=== PATIENT | female | born 1955 | race Caucasian/White ===

== ENCOUNTER 2023-02-11 14:27 | Emergency (ER) | payer MEDICARE, SELFPAY ==
[2023-02-11 14:48] VITALS: BP 138/72; PULSE 90; RESP 20; TEMP 36.1; O2SAT 96
--- NOTE | 2023-02-11 14:55 | ED.URI ---
HPI - URI/Sore Throat General Chief Complaint: Upper Respiratory Infection Stated Complaint: congestion,cough Time Seen by Provider: 02/11/23 14:55 Source: patient, RN notes reviewed and old records reviewed Mode of arrival: ambulatory Limitations: no limitations History of Present Illness HPI Narrative: 67 year old female who presents to express care with complaints of symptoms starting Saturday of nasal congestion and drainage which has progressed to deep cough with some production of yellowish phlegm. Patient reports that she has noted some wheezing at times. Patient reports that she has coughed so much and hard that she has thrown up. Patient reports that she moved to [facility] about a year ago and her PCP is in [facility] still. Patient reports that she did a home COVID test on which was negative has had COVID vaccinations. MD elicited complaint: cough, rhinorrhea, nasal congestion and other Pertinent past history: asthma Onset (ago): day(s) (5) Description of mucous: yellow Able to tolerate fluids by mouth: Yes Treatments prior to arrival: other (inhalers ) Related Data Home Medications Medication Instructions Recorded Confirmed albuterol sulfate 90 mcg/actuation 1 puff inhalation PRN PRN 02/11/23 02/11/23 aerosol inhaler Shortness Of Breath Or Wheezing amlodipine 5 mg-benazepril 20 mg 1 cap PO DAILY 02/11/23 02/11/23 capsule furosemide 40 mg tablet 40 mg PO DAILY 02/11/23 02/11/23 gabapentin 100 mg capsule 200 mg PO HS 02/11/23 02/11/23 metoprolol succinate 50 mg 50 mg PO HS 02/11/23 02/11/23 tablet,extended release 24 hr omeprazole 20 mg capsule,delayed 20 mg PO DAILY 02/11/23 02/11/23 release spironolactone 25 mg tablet 25 mg PO DAILY 02/11/23 02/11/23 tramadol 50 mg tablet 50 mg PO PRN PRN Pain 02/11/23 02/11/23 umeclidinium 62.5 mcg-vilanterol 1 inh inhalation DAILY 02/11/23 02/11/23 25 mcg/actuation powdr for inhalation (Anoro Ellipta) Allergies Allergy/AdvReac Type Severity Reaction Status Date / Time No Known Allergies Allergy Verified 02/11/23 14:37 Review of Systems Review of Systems: CONSTITUTIONAL: Denies malaise, chills, sweats, or fever. EYES: Denies visual changes, redness, or discharge. ENT: Reports rhinorrhea, congestion, sinus pain, no otalgia and some scratchy sore throat. CARDIOVASCULAR: Denies chest pain, palpitations, or edema. RESPIRATORY: Reports cough.? Denies dyspnea. GASTROINTESTINAL: Denies abdominal pain, nausea, one episode of vomiting with cough, diarrhea SKIN: Denies rash or itching. MUSCULOSKELETAL: Denies myalgia. NEUROLOGIC: Denies headache. All systems reviewed & are unremarkable except as noted in HPI and below PMFSH Past Medical History Medical History (Updated 02/12/23 @ 08:48 by Yue Phipps NP) Asthma Bronchitis GERD (gastroesophageal reflux disease) History of esophageal spasm Hyperlipidemia Hypertension Pneumonia Skin cancer Surgical History Surgical History (Updated 02/12/23 @ 08:49 by Yue Phipps NP) H/O hemorrhoidectomy H/O: hysterectomy History of cholecystectomy Social History Social History (Updated 02/12/23 @ 08:50 by Yue Phipps NP) Smoking status: Never smoker Alcohol intake: unknown Substance use type: does not use Gender identity (if verbalized by the patient): Female Comments At time of signature, agree with nursing past medical, surgical, social and family history. There is no relevant family history pertinent to the presenting complaint Exam Narrative: GENERAL: Well-appearing, well-nourished, and in no acute distress. HEAD: Normocephalic EYES: PERRLA, conjunctivae clear ENT: Nares clear, turbinates edematous and erythematous, yellow discharge. Mucous membranes moist. TM pearly campuzano with dull light reflex bilaterally; no tragal tenderness. Oropharynx erythematous without lesions. Tonsils not enlarged and without exudate, no drooling, some hoarseness,
== END 2023-02-11 15:19 | disposition home or self-care (01) ==
PROVIDERS: Emergency Provider Registered Nurse
DX: J40 Bronchitis, not specified as acute or chronic (principal); K21.9 Gastro-esophageal reflux disease without esophagitis; E78.5 Hyperlipidemia, unspecified; I10 Essential (primary) hypertension; J45.909 Unspecified asthma, uncomplicated; Z85.828 Personal history of other malignant neoplasm of skin
CPT/HCPCS: 99203; G0463

== ENCOUNTER 2023-05-21 09:20 | Emergency (ER) | payer MEDICARE, SELFPAY ==
--- NOTE | 2023-05-21 09:22 | ED.URI ---
HPI - URI/Sore Throat General Chief Complaint: Upper Respiratory Infection Stated Complaint: Chest Pain and Congestion Time Seen by Provider: 05/21/23 09:29 Source: patient, RN notes reviewed and old records reviewed Mode of arrival: ambulatory Limitations: no limitations History of Present Illness HPI Narrative: 68-year-old female presents to the [facility] with complaints of chest discomfort, congestion and shortness of breath that was sudden onset yesterday. Reports a sore throat. States that she feels like she can not get a deep breath. Patient states for the last 2 weeks she has had a runny nose? cold symptoms. ? Denies any fevers. States that she had tried her breathing treatment. States that she was having trouble breathing last night and was unable sleep. Onset (ago): day(s) (1) Treatments prior to arrival: other Related Data Home Medications Medication Instructions Recorded Confirmed albuterol sulfate 90 mcg/actuation 1 puff inhalation PRN PRN 02/11/23 05/21/23 aerosol inhaler Shortness Of Breath Or Wheezing amlodipine 5 mg-benazepril 20 mg 1 cap PO DAILY 02/11/23 05/21/23 capsule furosemide 40 mg tablet 40 mg PO DAILY 02/11/23 05/21/23 gabapentin 100 mg capsule 200 mg PO HS 02/11/23 05/21/23 metoprolol succinate 50 mg 50 mg PO HS 02/11/23 05/21/23 tablet,extended release 24 hr omeprazole 20 mg capsule,delayed 20 mg PO DAILY 02/11/23 05/21/23 release spironolactone 25 mg tablet 25 mg PO DAILY 02/11/23 05/21/23 tramadol 50 mg tablet 50 mg PO PRN PRN Pain 02/11/23 05/21/23 umeclidinium 62.5 mcg-vilanterol 1 inh inhalation DAILY 02/11/23 05/21/23 25 mcg/actuation powdr for inhalation (Anoro Ellipta) Allergies Allergy/AdvReac Type Severity Reaction Status Date / Time No Known Allergies Allergy Verified 05/21/23 09:43 Review of Systems Review of Systems: All systems reviewed & are unremarkable except as noted in HPI and below Constitutional: Constitutional: Reports no additional constitutional complaints Eyes: Eyes: Reports no additional eye complaints ENT: Reports system reviewed and no additional complaints, except as documented Cardiovascular: Cardiovascular: Reports as per HPI, Reports chest pain, Reports leg edema and Reports dyspnea Respiratory: Respiratory: Reports as per HPI, Reports chest congestion, Reports cough and Reports dyspnea Gastrointestinal: Gastrointestinal: Reports no additional gastrointestinal complaints, Denies abdominal pain, Denies nausea and Denies vomiting Musculoskeletal: Musculoskeletal: Reports no additional musculoskeletal complaints Integumentary/Breasts: Skin/Breast: Reports system reviewed and no additional complaints, except as docu Neurologic: Reports system reviewed and no additional complaints, except as documented Psychiatric: Psychiatric: Reports no additional psychiatric complaints Allergic/Immunologic: Allergic/Immunologic: Reports no additional allergic/immunologic complaints PMFSH Past Medical History Medical History Asthma Bronchitis GERD (gastroesophageal reflux disease) History of esophageal spasm Hyperlipidemia Hypertension Pneumonia Skin cancer Surgical History Surgical History H/O hemorrhoidectomy H/O: hysterectomy History of cholecystectomy Social History Social History Smoking status: Never smoker Alcohol intake: unknown Substance use type: does not use Gender identity (if verbalized by the patient): Female Comments At the time of my signature, I reviewed and agree with the nursing past medical, surgical, social, and family history. There is no relevant family history pertinent to the patient complaint. Exam Const: General: cooperative, healthy appearing, no acute distress, well developed, alert, uncomfortable and well nourished Nutritional Appear
[2023-05-21 09:39] VITALS: BP 136/75; PULSE 73; RESP 18; TEMP 36.6; O2SAT 89
--- NOTE | 2023-05-21 09:53 | ECG_ITS ---
Rate HI QRSd QT QTc P QRS T Severity 88 138 102 370 450 266 16 17 Abnormal ECG SINUS OR ECTOPIC ATRIAL RHYTHM BORDERLINE R WAVE PROGRESSION, ANTERIOR LEADS BORDERLINE T WAVE ABNORMALITY- ANTERIORL NIRMAL BASELINE ARTIFACT- II, III, AVF BORDERLINE ECG NO PREVIOUS ECG AVAILABLE FOR COMPARISON Electronically Signed On 05-21-2023 11:25:16 [employer] by Chuckie LEMUS
== END 2023-05-21 09:55 | disposition short-term general hospital (02) ==
PROVIDERS: Emergency Provider Nurse Practitioner
DX: R06.02 Shortness of breath (principal); R07.9 Chest pain, unspecified; R94.31 Abnormal electrocardiogram [ECG] [EKG]; J45.909 Unspecified asthma, uncomplicated; K21.9 Gastro-esophageal reflux disease without esophagitis; E78.5 Hyperlipidemia, unspecified; I10 Essential (primary) hypertension; Z85.828 Personal history of other malignant neoplasm of skin
CPT/HCPCS: 93005; 99215; G0463

== ENCOUNTER 2023-05-21 10:17 | Emergency (ER) | payer MEDICARE, SELFPAY ==
--- NOTE | ~2023-05-21 | XR_ITS ---
XR chest 2V 05/21/2023 12:12 Indication: Dyspnea Procedure: 2 view chest Comparison: No prior studies for comparison. Findings: Borderline heart size. No focal air space disease, pulmonary edema, pleural effusion or akil pected pneumothorax. No acute osseous abnormality. Impression: 1: No acute cardiopulmonary disease. Reviewed, dictated and finalized at location [facility] [employer] Impression: 1: No acute cardiopulmonary disease.
[2023-05-21 11:09] VITALS: BP 133/78; PULSE 81; RESP 18; TEMP 36.2; O2SAT 94
--- NOTE | 2023-05-21 11:13 | ECG_ITS ---
Rate [place] QRSd QT QTc P QRS T Severity 76 162 97 383 433 -79 -49 12 Abnormal ECG ECTOPIC ATRIAL RHYTHM ATRIAL PREMATURE COMPLEXES LOW QRS VOLTAGE IN PRECORDIAL LEADS ANTERIOR INFARCT, AGE INDETERMINATE CONSIDER INFERIOR INFARCT, AGE INDETERMINATE BORDERLINE T WAVE ABNORMALITY- ANTERIOR LEADS BASELINE ARTIFACT- I, II, III, AVR, AVL, AVF ABNORMAL ECG Electronically Signed On 05-21-2023 15:28:20 [employer] by Chuckie Villarreal D.O. COMPARED TO ECG 05/21/2023 09:35:14 MYOCARDIAL INFARCT FINDING NOW PRESENT MTDD
--- NOTE | 2023-05-21 11:14 | ED.URI ---
HPI - URI/Sore Throat General Chief Complaint: Weakness <Kate Ramirez PA-C - Last Filed: 05/21/23 17:24> Stated Complaint: pneumonia <Kate Ramirez PA-C - Last Filed: 05/21/23 17:24> Time Seen by Provider: 05/21/23 11:14 <Kate Ramirez PA-C - Last Filed: 05/21/23 17:24> History of Present Illness HPI Narrative: Focused HPI: This is a 60-year-old female that presents to the emergency department for cold symptoms present since yesterday. Reports congestion and shortness of breath. She was seen in urgent care and sent to the ER for further evaluation due to abnormal EKG. Denies chest pain GENERAL: Well-appearing, well-nourished, and in no acute distress. HEAD: Normocephalic, atraumatic. CHEST: Clear to auscultation. No respiratory distress. HEART: Regular rate and rhythm. NEURO: Alert and oriented x3. Patient screened in triage and initial orders placed. Additional care and disposition to be based upon diagnostic testing and treatment. --- 68-year-old female present to the emergency department for evaluation for increased cough and congestion. Patient does have a history of asthma but denies any diagnosis of COPD. Patient states yearly she has issues with cough and congestion and patient was told by her electrotyper helper to present to the clinic for prompt evaluation. Patient reports that her symptoms started last night. Patient states she is not a smoker has no oxygen requirement at home. At time of evaluation patient does not appear to be in any distress. <Kate Ramirez PA-C - Last Filed: 05/21/23 17:24> Focused HPI: This is a 60-year-old female that presents to the emergency department for cold symptoms present since yesterday. Reports congestion and shortness of breath. She was seen in urgent care and sent to the ER for further evaluation due to abnormal EKG. Denies chest pain GENERAL: Well-appearing, well-nourished, and in no acute distress. HEAD: Normocephalic, atraumatic. CHEST: Clear to auscultation. No respiratory distress. HEART: Regular rate and rhythm. NEURO: Alert and oriented x3. Patient screened in triage and initial orders placed. Additional care and disposition to be based upon diagnostic testing and treatment. --- 68-year-old female present to the emergency department for evaluation for increased cough and congestion. Patient does have a history of a dull asthma but denies any diagnosis of COPD. Patient states yearly she has issues with cough and congestion and patient was told by her electrotyper helper to present to the clinic for prompt evaluation. Patient reports that her symptoms started last night. Patient states she is not a smoker has no oxygen requirement at home. At time of evaluation patient does not appear to be in any distress. <Skinny Almanzar MD - Last Filed: 05/21/23 18:20> Related Data Home Medications: Home Medications Medication Instructions Recorded Confirmed albuterol sulfate 90 mcg/actuation 1 puff inhalation PRN PRN 02/11/23 05/21/23 aerosol inhaler Shortness Of Breath Or Wheezing amlodipine 5 mg-benazepril 20 mg 1 cap PO DAILY 02/11/23 05/21/23 capsule furosemide 40 mg tablet 40 mg PO DAILY 02/11/23 05/21/23 gabapentin 100 mg capsule 200 mg PO HS 02/11/23 05/21/23 metoprolol succinate 50 mg 50 mg PO HS 02/11/23 05/21/23 tablet,extended release 24 hr omeprazole 20 mg capsule,delayed 20 mg PO DAILY 02/11/23 05/21/23 release spironolactone 25 mg tablet 25 mg PO DAILY 02/11/23 05/21/23 tramadol 50 mg tablet 50 mg PO PRN PRN Pain 02/11/23 05/21/23 umeclidinium 62.5 mcg-vilanterol 1 inh inhalation DAILY 02/11/23 05/21/23 25 mcg/actuation powdr for inhalation (Anoro Ellipta) <Kate Ramirez PA-C - Last Filed: 05/21/23 17:24> Allergies/Adverse Reactions: Allergies Allergy/AdvReac Type Severity Reaction Status Date / Time No Known Allergies Allergy Verified 05/21/23 09:43 <Kate Ramirez PA-C - [place]
[2023-05-21 11:46] LABS: Basophils Absolute Auto 0.1 K/mm3 (0.0-0.1); Basophils Percent Auto 0.6 % (0.2-1.2); Eosinophils Absolute Auto 0.2 K/mm3 (0-0.3); Eosinophils Percent Auto 1.9 % (0-4.4); Hematocrit 47.8 % (37.0-47.0); Hemoglobin 14.9 g/dL (12.0-15.0); Immature Granulocyte Absolute 0.02 K/mm3 (0.00-0.031); Immature Granulocyte Percent A 0.2 % (0-0.5); Lymphocytes Absolute Auto 1.06 K/mm3 (0.9-3.2); Lymphocytes Percent Auto 12.5 % (18.3-44.2); Mean Corpuscular HGB Conc 31.2 g/dl (32-36); Mean Corpuscular Hemoglobin 30.2 pg (26-34); Mean Corpuscular Volume 96.8 fl (80-100); Mean Platelet Volume 10.4 fl (7.4-10.4); Monocytes Absolute Auto 0.6 K/mm3 (0.1-0.6); Monocytes Percent Auto 7.1 % (2.6-8.5); Neutrophils Absolute Auto 6.6 K/mm3 (1.3-6.7); Neutrophils Percent Auto 77.7 % (45.5-73.1); Platelet Count Result 226 k/mm3 (150-375); Red Blood Count 4.94 M/mm3 (4.2-5.4); Red Cell Distribution Width 13.7 % (11.5-14.5); White Blood Count 8.5 K/mm3 (4.5-10.0)
[2023-05-21 11:58] LABS: INR 0.9; Prothrombin Time 12.5 Seconds (11.1-14.7)
[2023-05-21 11:59] LABS: Partial Thromboplastin Time 33.2 SECONDS (22.3-36.8)
[2023-05-21 12:27] LABS: Influenza A QL RT-PCR Negative (Negative); Influenza B QL RT-PCR Negative (Negative); RSV RNA, RT-PCR Negative (Negative); SARS-CoV-2 RNA PCR Negative (Negative)
[2023-05-21 12:34] VITALS: O2SAT 97
[2023-05-21 13:08] LABS: Albumin Level 4.4 g/dL (3.5-5.1); Alkaline Phosphatase 111 U/L (38-126); Aspartate Amino Transferase 29 U/L (14-36); Bilirubin,Total 0.6 mg/dL (0.2-1.3); Blood Urea Nitrogen 27 mg/dL (7-17); Calcium 9.4 mg/dL (8.4-10.2); Chloride 98 mmol/L (98-107)
[2023-05-21 13:09] VITALS: BP 137/77; PULSE 86; RESP 16; O2SAT 93
[2023-05-21 14:08] LABS: Alanine Aminotransferase 21 U/L (6-35); Anion Gap 7 mmol/L (8-16); Carbon Dioxide 34 mmol/L (22-30); Glucose 98 mg/dL (65-110); Potassium 5.1 mmol/L (3.4-5.0); Sodium 139 mmol/L (137-145)
[2023-05-21 14:18] VITALS: PULSE 83; RESP 16; O2SAT 93
[2023-05-21 15:13] VITALS: PULSE 89; RESP 20
[2023-05-21] MEDS: ALBUTEROL SULFATE NEB 2.5 MG/3 ML INH INHALATION (15:13)
[2023-05-21 15:19] VITALS: PULSE 95; RESP 20
[2023-05-21] MEDS: AMOXICILLIN/CLAVULANATE K 875-125 MG TAB 1 TABLET PO (15:24)
[2023-05-21] MEDS: AZITHROMYCIN 250 MG TABLET 500 MG PO (15:25)
[2023-05-21] MEDS: predniSONE 20 MG TABLET 40 MG PO (15:25)
== END 2023-05-21 15:32 | disposition home or self-care (01) ==
PROVIDERS: Physician Assistant; Emergency Provider Emergency Medicine
DX: J45.909 Unspecified asthma, uncomplicated (principal); Z20.822 Contact with and (suspected) exposure to COVID-19; I10 Essential (primary) hypertension; E78.5 Hyperlipidemia, unspecified; K21.9 Gastro-esophageal reflux disease without esophagitis; Z85.828 Personal history of other malignant neoplasm of skin; Z90.710 Acquired absence of both cervix and uterus; Z90.49 Acquired absence of other specified parts of digestive tract; I49.1 Atrial premature depolarization; R94.31 Abnormal electrocardiogram [ECG] [EKG]; Z87.01 Personal history of pneumonia (recurrent)
CPT/HCPCS: 36415; 71046; 80053; 85025; 85610; 85730; 87637; 93005; 94640; 99284; A9270; J7512

== ENCOUNTER 2023-12-06 13:12 | Inpatient (IN) | payer MEDICARE, SELFPAY ==
[2023-12-06] VITALS (16 sets, daily range): BP systolic 119–167; BP diastolic 53–77; PULSE 56–90; RESP 12–21; TEMP 36.4–36.8; O2SAT 81–99
--- NOTE | ~2023-12-06 | XR_ITS ---
EXAMINATION: XR chest 1V portable DATE: 12/06/2023 15:01 INDICATION: Shortness of breath. TECHNIQUE: A single frontal view of the chest was obtained. COMPARISON: Chest 2 views 05/21/2023 FINDINGS: There is no pneumonia, pleural effusion, or pneumothorax. Cardiomegaly is noted. IMPRESSION: 1. Cardiomegaly. Reviewed, dictated and finalized at location [facility]. IMPRESSION: 1. Cardiomegaly.
--- NOTE | ~2023-12-06 | CT_ITS ---
CTA chest PE protocol Ordering provider: Ramona Godinez MD History: 68 years Female with . pe . Comparison: None. Technique: CT angiogram chest was performed following timed intravenous injection of contrast. Thin s lice axial images and reformatted coronal images were obtained. Three dimensional reformatted images of the chest were also obtained using a vivit workstation. . Automated exposure control and iterati ve reconstruction technique were employed. The dose-length product was 929.99 mGy-cm. 100 ML Omnipaque 350 was given IV. Findings: PULMONARY ARTERIES: No pulmonary embolus. VISUALIZED THORACIC INLET: Normal. MEDIASTINUM: Aorta/coronary arteries: Mild atheromatous disease. Heart/other: The heart is slightly enlarged. Lymph nodes: No mediastinal or hilar adenopathy. LUNGS: No pulmonary nodules or masses. No infiltrates or effusions. No pneumothorax. Atelectatic changes see n in the lung bases. Levoscoliosis of muscle VISUALIZED UPPER ABDOMEN: Hypodensity in the left kidney most likely a cyst. Small sliding hiatus her sean. Otherwise, the visualized upper abdomen is normal. MUSCULOSKELETAL: Soft tissues: The superficial soft tissues are normal. Bones: Age appropriate degenerative changes of the spine. Sclerotic lesion in the left seventh rib. IMPRESSION: 1. No pulmonary embolism. 2. Atelectatic changes in the lung bases and lingula. Reviewed, dictated and finalized at location A.
--- NOTE | 2023-12-06 13:21 | ECG_ITS ---
Test Date: 2023-12-06 13:37:12 Measurements Intervals [place] Rate: 63 P: -82 MA: 144 QRS: 7 QRSD: 89 T: 15 QT: 382 QTc: 393 Interpretive Statements ECTOPIC ATRIAL RHYTHM POOR R-WAVE PROGRESSION SMALL, NONDIAGNOSTIC INFERIOR Q-WAVES ABNORMAL ECG No previous ECG available for comparison Electronically Signed On 12-06-2023 15:07:44 CDT by Nam Ferreira M.D.
--- NOTE | 2023-12-06 13:31 | PC.NURSE ---
Pt was 81% on RA when connected to monitor, pt appeared calm and able to speak a few words at a time still. Placed on 4L NC, came up to 100%, O2 reduced to 2L NC, pt currently 98% on 2L. Pt reports over the last few days she has been feeling very short of breath with any movement, has a home SpO2 that has dropped to 70%'s with exertion.
--- NOTE | 2023-12-06 13:38 | ED.SOB ---
HPI - SOB/Dyspnea General Chief Complaint: Shortness of Breath/Dyspnea Stated Complaint: low O2 at home Time Seen by Provider: 12/06/23 13:36 Source: patient Mode of arrival: ambulatory Limitations: no limitations and clinical condition History of Present Illness HPI Narrative: 68 years old white female came to the ED by by private car from home complaining of trouble breathing over the last 3 days. She believes that her shortness of breath is getting worse. She is telling me that she have history of asthma with frequent pneumonia. Patient is not on oxygen. She denies any chest pain, fever, chills, nausea, vomiting or back pain. Related Data Home Medications Medication Instructions Recorded Confirmed albuterol sulfate 90 mcg/actuation 1 puff inhalation PRN PRN 02/11/23 05/21/23 aerosol inhaler Shortness Of Breath Or Wheezing amlodipine 5 mg-benazepril 20 mg 1 cap PO DAILY 02/11/23 05/21/23 capsule furosemide 40 mg tablet 40 mg PO DAILY 02/11/23 05/21/23 gabapentin 100 mg capsule 200 mg PO HS 02/11/23 05/21/23 metoprolol succinate 50 mg 50 mg PO HS 02/11/23 05/21/23 tablet,extended release 24 hr omeprazole 20 mg capsule,delayed 20 mg PO DAILY 02/11/23 05/21/23 release spironolactone 25 mg tablet 25 mg PO DAILY 02/11/23 05/21/23 tramadol 50 mg tablet 50 mg PO PRN PRN Pain 02/11/23 05/21/23 umeclidinium 62.5 mcg-vilanterol 1 inh inhalation DAILY 02/11/23 05/21/23 25 mcg/actuation powdr for inhalation (Anoro Ellipta) Allergies Allergy/AdvReac Type Severity Reaction Status Date / Time No Known Allergies Allergy Verified 12/06/23 13:13 Review of Systems Review of Systems: All systems reviewed & are unremarkable except as noted in HPI and below PMFSH Past Medical History Medical History Asthma Bronchitis GERD (gastroesophageal reflux disease) History of esophageal spasm Hyperlipidemia Hypertension Pneumonia Skin cancer Surgical History Surgical History H/O hemorrhoidectomy H/O: hysterectomy History of cholecystectomy Social History Social History Smoking status: Never smoker Alcohol intake: unknown Substance use type: does not use Gender identity (if verbalized by the patient): Female Exam Narrative: General appearance: Well-developed, well-nourished Skin: Normal color Head: Normocephalic, nontraumatic Eyes: Clear conjunctiva ENT: Oropharynx normal, ears normal, nose normal Neck: Supple, nontender Chest and respiratory: Airway patent, mild respiratory distress, scattered rhonchi bilaterally Heart: Regular rate/rhythm Abdomen: Soft, nontender, no organomegaly, quiet bowel sounds Vascular: Normal peripheral pulses, normal capillary refill. 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 normal as tested, no gross motor deficit Course Vital Signs Vital signs: Vital Signs Temperature 36.8 C 12/06/23 13:20 Pulse Rate 68 12/06/23 13:20 Respiratory Rate 21 H 12/06/23 13:20 Blood Pressure 154/71 H 12/06/23 13:20 Pulse Oximetry 95 12/06/23 13:20 Temperature 36.4 C 12/06/23 13:29 Pulse Rate 56 L 12/06/23 15:15 Respiratory Rate 12 12/06/23 15:15 Blood Pressure 167/77 H 12/06/23 13:29 Pulse Oximetry 98 12/06/23 14:27 Oxygen Delivery BiPAP 12/06/23 14:27 MDM - SOB/Dyspnea MDM Narrative Medical decision making narrative: Patient came to the ED by private car with shortness of breath, history of asthma Vital signs on arrival to the ED stable Phy
[2023-12-06 14:10] LABS: Alveolar/Arterial O2 Gradient 48.3 mmHg; Base Excess ABG 4.4 mEq/l (+/-2.0); Fractional Inspired Oxygen 28 %; HCO3 ABG 33.2 mEq/l (22.0-26.0); Oxygen Content ABG 19.4 %vol (16.0-22.0); Oxygen Saturation ABG 92.2 % (95.0-100.0); Oxyhemoglobin 91.9 % THb (90.0-100.0); PO2 ABG 71.1 mmHg (80.0-100.0); PO2 FiO2 Ratio Arterial Blood 2.54 %; pH ABG 7.306 (7.350-7.450)
[2023-12-06 14:12] LABS: Device NASAL CANNULA; Modified Allen's Test Pass; Site Drawn RIGHT RADIAL
[2023-12-06 14:25] LABS: Basophils Absolute Auto 0.1 K/mm3 (0.0-0.1); Basophils Percent Auto 0.7 % (0.2-1.2); Eosinophils Absolute Auto 0.2 K/mm3 (0-0.3); Eosinophils Percent Auto 2.9 % (0-4.4); Hematocrit 47.6 % (37.0-47.0); Hemoglobin 14.5 g/dL (12.0-15.0); Immature Granulocyte Absolute 0.03 K/mm3 (0.00-0.031); Immature Granulocyte Percent A 0.4 % (0-0.5); Lymphocytes Absolute Auto 0.76 K/mm3 (0.9-3.2); Lymphocytes Percent Auto 10.5 % (18.3-44.2); Mean Corpuscular HGB Conc 30.5 g/dl (32-36); Mean Corpuscular Hemoglobin 31.3 pg (26-34); Mean Corpuscular Volume 102.6 fl (80-100); Mean Platelet Volume 10.1 fl (7.4-10.4); Monocytes Absolute Auto 0.5 K/mm3 (0.1-0.6); Monocytes Percent Auto 6.5 % (2.6-8.5); Neutrophils Absolute Auto 5.7 K/mm3 (1.3-6.7); Platelet Count Result 224 k/mm3 (150-375); Red Blood Count 4.64 M/mm3 (4.2-5.4); Red Cell Distribution Width 15.5 % (11.5-14.5); White Blood Count 7.3 K/mm3 (4.5-10.0)
[2023-12-06 14:33] LABS: Partial Thromboplastin Time 32.4 Seconds (22.3-36.8)
[2023-12-06 15:01] LABS: Alanine Aminotransferase 15 U/L (6-35); Alkaline Phosphatase 92 U/L (38-126); Anion Gap 6 mmol/L (4-12); Aspartate Amino Transferase 29 U/L (14-36); Bilirubin,Total 0.6 mg/dL (0.2-1.3); Blood Urea Nitrogen 22 mg/dL (7-17); Carbon Dioxide 37 mmol/L (22-30); Chloride 95 mmol/L (98-107); Estimated CRCL calculation 60 ml/min; Estimated Glomerular Filt Rate > 60; Glucose 86 mg/dL (65-110); Potassium 4.8 mmol/L (3.4-5.0); Sodium 138 mmol/L (137-145)
[2023-12-06] MEDS: methylPREDNISolone SOD SUCC 125 MG VIAL IV PUSH (15:01)
[2023-12-06] MEDS: ALBUTEROL SULFATE NEB 2.5 MG/3 ML INH INHALATION ×3 (15:11→15:12)
[2023-12-06] MEDS: IPRATROPIUM BR 0.02% INH SOLN 0.5 MG/2.5 ML VIAL INHALATION ×3 (15:11→15:12)
[2023-12-06 15:17] LABS: NT Pro B Type Natriuretic Pept 799 pg/mL (19.9-100); Troponin I < 0.012 ng/mL (0.000-0.034)
--- NOTE | 2023-12-06 17:23 | ECG_ITS ---
Test Date: 2023-12-06 17:41:54 Measurements Intervals [place] Rate: 62 P: -79 FL: 132 QRS: -4 QRSD: 100 T: 12 QT: 401 QTc: 408 Interpretive Statements ECTOPIC ATRIAL RHYTHM POSSIBLE ANTERIOR MYOCARDIAL INFARCTION , OF INDETERMINATE AGE [30 ms Q WAVE IN V3/V4, OR R < 0.2 mV IN V4] Compared to ECG 12/06/2023 13:37:12 no change Electronically Signed On 12-08-2023 13:21:40 CDT by Preet Mata M.D.
[2023-12-06 18:02] LABS: Troponin I < 0.012 ng/mL (0.000-0.034)
[2023-12-06] MEDS: ACETAMINOPHEN 500 MG TABLET 1000 MG PO (18:23)
[2023-12-06 18:38] LABS: Alveolar/Arterial O2 Gradient 51.5 mmHg; Base Excess ABG 5.1 mEq/l (+/-2.0); Fractional Inspired Oxygen 28 %; HCO3 ABG 33.4 mEq/l (22.0-26.0); Oxygen Content ABG 20.7 %vol (16.0-22.0); Oxygen Saturation ABG 93.1 % (95.0-100.0); Oxyhemoglobin 92.8 % THb (90.0-100.0); PO2 ABG 72.2 mmHg (80.0-100.0); PO2 FiO2 Ratio Arterial Blood 2.58 %; Total Hemoglobin 15.9 g/dL (12.0-18.0); pH ABG 7.333 (7.350-7.450)
[2023-12-06 18:40] LABS: PCO2 ABG 64.4 mmHg (35.0-45.0)
[2023-12-06 18:41] LABS: Device NASAL CANNULA; Modified Allen's Test Pass; Site Drawn RIGHT RADIAL
--- NOTE | 2023-12-06 18:42 | PM.IMHP ---
H&P: HPI History of Present Illness Date/Time: 12/06/23 18:42 Chief Complaint: Shortness of Breath Narrative: 68 y/o F presents here with shortness of breath with past medical history of asthma, frequent bronchitis and pneumonia, hypertension, hyperlipidemia, and GERD. The patient presents here from home via personal vehicle for further evaluation of shortness of breath. She reports onset approximately 2-3 days ago and has been progressively worsening. Patient used home rescue inhaler and nebs without improvement, reports they are . Shortness of breath accompanied by chest tightness which she further describes as inability to take a full breath and restlessness. Denying cough, fever, chills, body aches, or chest pain. Patient states she took her oxygen saturation at home with a home pulse ox which she reports was reading 72% when she would ambulate. Patient does not have a O2 requirement at baseline. Now requiring 2L NC to maintain O2 sat greater than 92%. Initial VS at presentation: 98.2? F, HR 68, RR 21, 154/71, and 95% on RA. Now requiring 2L NC. ED workup showed: No leukocytosis, no anemia, elevated D-dimer, elevated CO2 on ABG, creatinine 0.9 and normal GFR, initial troponin negative, and BNP 799. CXR showed cardiomegaly. Chest CTA showed no pulmonary embolism and atelectatic changes in the lung bases and lingula. Review of Systems Review of Systems: All systems reviewed & are unremarkable except as noted in HPI and below PMFSH Past Medical History Medical History Asthma Bronchitis GERD (gastroesophageal reflux disease) History of esophageal spasm Hyperlipidemia Hypertension Pneumonia Skin cancer Surgical History Surgical History H/O hemorrhoidectomy H/O: hysterectomy History of cholecystectomy Social History Social History Smoking status: Never smoker Alcohol intake: unknown Substance use type: does not use Gender identity (if verbalized by the patient): Female Meds Home Medications and Allergies Home Medications Medication Instructions Recorded Confirmed Type albuterol sulfate 90 mcg/actuation 1 puff inhalation PRN PRN 02/11/23 12/06/23 History aerosol inhaler Shortness Of Breath Or Wheezing amlodipine 5 mg-benazepril 20 mg 1 cap PO DAILY 02/11/23 12/06/23 History capsule azithromycin 250 mg tablet See Rx Instructions PO .COMPLEX #6 02/11/23 12/06/23 Rx tabs furosemide 40 mg tablet 40 mg PO DAILY 02/11/23 12/06/23 History gabapentin 100 mg capsule 200 mg PO HS 02/11/23 12/06/23 History metoprolol succinate 50 mg 50 mg PO HS 02/11/23 12/06/23 History tablet,extended release 24 hr omeprazole 20 mg capsule,delayed 20 mg PO DAILY 02/11/23 12/06/23 History release prednisone 20 mg tablet 20 mg PO BID #10 tabs 02/11/23 12/06/23 Rx spironolactone 25 mg tablet 25 mg PO DAILY 02/11/23 12/06/23 History tramadol 50 mg tablet 50 mg PO PRN PRN Pain 02/11/23 12/06/23 History umeclidinium 62.5 mcg-vilanterol 1 inh inhalation DAILY 02/11/23 12/06/23 History 25 mcg/actuation powdr for inhalation (Anoro Ellipta) albuterol sulfate 1.25 mg/3 mL 1.25 mg (3 mL) inhalation Q4H #75 05/21/23 12/06/23 Rx solution for nebulization mL amoxicillin 875 mg-potassium 1 tablet PO Q12H #14 tabs 05/21/23 12/06/23 Rx clavulanate 125 mg tablet azithromycin 250 mg tablet See Rx Instructions PO .COMPLEX #6 05/21/23 12/06/23 Rx tabs prednisone 50 mg tablet 50 mg PO DAILY 5 days #5 tabs 05/21/23 12/06/23 Rx Allergies Allergy/AdvReac Type Severity Reaction Status Date / Time No Known Allergies Allergy Verified 12/06/23 13:13 Vital Signs Vital Signs - 24 hr 12/06/23 13:20 12/06/23 13:29 12/06/23 13:49 Temperature 98.2 F 97.6 F Pulse Rate 68 67 63 Respiratory Rate 21 H 20 Blood Pressure 154/71 H 167/
[2023-12-06 19:54] LABS: Influenza A QL RT-PCR Negative (Negative); Influenza B QL RT-PCR Negative (Negative); RSV RNA, RT-PCR Negative (Negative); SARS-CoV-2 RNA PCR Negative (Negative)
[2023-12-06] MEDS: ALBUTEROL SULFATE NEB 2.5 MG/3 ML INH 10 MG INHALATION (20:19)
[2023-12-06] MEDS: IPRATROPIUM 0.5 MG/ALBUTEROL SULFATE 2.5 MG AMPUL.NEB 3 ML INHALATION (20:20)
[2023-12-06 21:16] LABS: Troponin I < 0.012 ng/mL (0.000-0.034)
[2023-12-06] MEDS: LACTATED RINGERS 1,000 ML 100 ML (21:24)
[2023-12-06] MEDS: METOPROLOL SUCCINATE EXT REL 50 MG TABCR PO (21:25)
[2023-12-06] MEDS: GABAPENTIN 100 MG CAPSULE 200 MG PO (21:25)
--- NOTE | 2023-12-06 22:17 | ADMGEN ---
This patient, Zena Lim, was admitted to [facility] Surg Room 329-01. Patient/family oriented to hospital policies and general routines including ID bracelet, bed and alarms, visiting hours, pain management, procedures, bathroom and other care routines, personal items, smoking policy, room service/diet, and visiting hours. Information on how to activate the Rapid Response Team has been discussed. Patient/Family are encouraged to report perceived risks to care and to ask questions if they do not understand what they are told or what they should do.
[2023-12-07] VITALS (15 sets, daily range): BP systolic 121–142; BP diastolic 61–67; PULSE 57–92; RESP 7–20; TEMP 36.2–36.7; O2SAT 90–98
[2023-12-07] MEDS: traMADol HCL (*CRX) 50 MG TABLET PO ×4 (00:19→22:24)
[2023-12-07] MEDS: methylPREDNISolone SOD SUCC 125 MG VIAL 60 MG IV PUSH ×4 (00:19→21:05)
[2023-12-07] MEDS: IPRATROPIUM 0.5 MG/ALBUTEROL SULFATE 2.5 MG AMPUL.NEB 3 ML INHALATION ×4 (02:27→19:59)
[2023-12-07] MEDS: UMECLIDINIUM/VILANTEROL 62.5-25 MCG ELLIPTA 1 PUFF INHALATION (07:50)
[2023-12-07] MEDS: SPIRONOLACTONE 25 MG TABLET PO (09:04)
[2023-12-07] MEDS: FUROSEMIDE 40 MG TABLET PO (09:04)
[2023-12-07] MEDS: lisinopriL 20 MG TABLET PO (09:04)
[2023-12-07] MEDS: PANTOPRAZOLE 40 MG TABLET PO (09:04)
[2023-12-07] MEDS: amLODIPine BESYLATE 5 MG TABLET PO (09:45)
--- NOTE | 2023-12-07 11:51 | PM.IMPN ---
Progress Note: A&P Assessment and Plan (1) Acute hypoxemic respiratory failure: Code(s): J96.01 - Acute respiratory failure with hypoxia Status: Acute Assessment and Plan: - Likely related to asthma vs COPD exacerbation. - CXR with no infiltrates. - CTA chest negative for PE. - Acute respiratory virus PCR negative. - Improving with IV steroids and scheduled bronchodilators. - Started on Singulair and claritin. - Currently on 2L/NC with sats > 90 %. - Continue to wean O2 as dawit to maintain sats > 90 %. (2) Asthma: Qualifiers: Asthma severity: unspecified severity Asthma persistence: intermittent Asthma complication type: with acute exacerbation Qualified Code(s): J45.21 - Mild intermittent asthma with (acute) exacerbation Code(s): J45.909 - Unspecified asthma, uncomplicated Status: Acute Assessment and Plan: - current exacerbation. - CXR and CTA chest negative for pneumonia/PE. - Symptoms improving with steroids and scheduled bronchodilators. - Continue IV steroids for now and consider PO in AM. - Started on Singulair and claritin as we continue Anoro Ellipta. - Continue f/u with belt knife feeder outpatient. (3) Hypertension: Qualifiers: Hypertension type: primary hypertension Qualified Code(s): I10 - Essential (primary) hypertension Code(s): I10 - Essential (primary) hypertension Status: Chronic Assessment and Plan: - Fairly controlled. - Continue Amlodipine, Lisinopril, Spironolactone and Metoprolol. - Adjust meds as needed. Plan Patient presented with acute exacerbation of asthma vs COPD exacerbation. Reports Metal Furniture Glazier informed her she likely has adult-onset asthma while her PCP was suspecting COPD with her previous Hx of smoking. Patient currently on 2L/NC to maintain sats > 90%. Patient continued on IV steroids and scheduled bronchodilators. Started on Singulair and Claritin. We'll continue to wean O2 as tolearted to maintain sats > 90 %. Consider converting prednisone to PO in AM and wean as symptoms improve. No evidence of PE or pneumonia on CXR or CTA of the chest. Diet: Heart healthy GI Prophylaxis: Omeprazole. DVT Prophylaxis: Lovenox. Lines: Peripheral Code Status: Full code Time Spent With Patient Time with patient: 25 - 35 minutes Subjective Date/time seen: 12/07/23 10:25 Interval history: Patient presented to the ER with worsening chest tightness and SOB. CXR done showed cardiomegaly, with CTA chest negative for PE, only showing atelectasis changes in the lung bases and lingula. Pt ABG's showed PH 7.3, PO2 71.1, PCO2 68. She was initially placed on BIPAP which was able to be weaned of and pt currently on 2L/NC with sats > 90 %. Patient reports she sees a belt knife feeder in [place], and was informed she probably has adult-onset asthma, with her PCP suspecting COPD. Patient reports much improvement in symptoms currently and states breathing is much better and chest tightness is resolved. Review of Systems Review of Systems: All systems reviewed & are unremarkable except as noted in HPI and below Exam Narrative: Rhonchi with some expiratory wheezes. Const: General: no acute distress and uncomfortable Other: female, nontoxic appearance. Appears comfortable. HENMT: Face/Nose/Sinus: Normal nares present Mouth: Yes dry mucous membranes Other: BiPAP in place. Eyes: General: appearance normal, both eyes and all related structures Sclera: sclerae normal Pupils: Equal, round and reactive pupils present EOM: EOMs intact bilaterally Neck: Neck: supple Resp: Other: Mild tachypnea without accessory muscle use. Lung sounds tight/diminished throughout. No audible wheezing or crackles. Cardio: Rate: regular rate Rhythm: regular rhythm Other: S1-S2 present without murmur, rub, ectopy GI: GI Palp: Yes Soft to palpation Auscultation: normal bowel sounds Other:
[2023-12-07] MEDS: LORATADINE/PSEUDOEPHEDRINE (*CRX) 10/240 MG TABLET ER 24 HR 1 TAB PO (12:32)
--- NOTE | 2023-12-07 14:03 | PC.NURSE ---
Assuming care for pt
--- NOTE | 2023-12-07 16:19 | PC.NURSE ---
Care assumed from RODRIGO Carias.
[2023-12-07] MEDS: GABAPENTIN 100 MG CAPSULE 200 MG PO (21:05)
[2023-12-07] MEDS: METOPROLOL SUCCINATE EXT REL 50 MG TABCR PO (21:05)
[2023-12-07] MEDS: MONTELUKAST SODIUM 10 MG TABLET PO (21:07)
[2023-12-08] VITALS (17 sets, daily range): BP systolic 103–136; BP diastolic 55–70; PULSE 56–74; RESP 14–22; TEMP 36.3; O2SAT 92–100
[2023-12-08] MEDS: IPRATROPIUM 0.5 MG/ALBUTEROL SULFATE 2.5 MG AMPUL.NEB 3 ML INHALATION ×4 (01:35→21:02)
[2023-12-08] MEDS: traMADol HCL (*CRX) 50 MG TABLET PO ×3 (03:49→20:02)
[2023-12-08] MEDS: methylPREDNISolone SOD SUCC 125 MG VIAL 60 MG IV PUSH ×3 (05:14→20:02)
[2023-12-08] MEDS: UMECLIDINIUM/VILANTEROL 62.5-25 MCG ELLIPTA 1 PUFF INHALATION (07:28)
--- NOTE | 2023-12-08 09:04 | PM.IMPN ---
Progress Note: A&P Assessment and Plan (1) Acute hypoxemic respiratory failure: Code(s): J96.01 - Acute respiratory failure with hypoxia Status: Acute Assessment and Plan: - Likely related to asthma vs COPD exacerbation. - CXR with no infiltrates. - CTA chest negative for PE. - Acute respiratory virus PCR negative. - Improving with IV steroids and scheduled bronchodilators. - Started on Singulair and claritin. - Currently on 2L/NC with sats > 90 %. - Continue to wean O2 as dawit to maintain sats > 90 %. 12/07- may need home o2 eval prior to discharge - try to wean off o2 - anticipate discharge home tomorrow (2) Asthma: Qualifiers: Asthma complication type: with acute exacerbation Asthma persistence: intermittent Asthma severity: unspecified severity Qualified Code(s): J45.21 - Mild intermittent asthma with (acute) exacerbation Code(s): J45.909 - Unspecified asthma, uncomplicated Status: Acute Assessment and Plan: - current exacerbation. - CXR and CTA chest negative for pneumonia/PE. - Symptoms improving with steroids and scheduled bronchodilators. - Continue IV steroids for now and consider PO in AM. - Started on Singulair and claritin as we continue Anoro Ellipta. - Continue f/u with alarm service technician outpatient. (3) Hypertension: Qualifiers: Hypertension type: primary hypertension Qualified Code(s): I10 - Essential (primary) hypertension Code(s): I10 - Essential (primary) hypertension Status: Chronic Assessment and Plan: - Fairly controlled. - Continue Amlodipine, Lisinopril, Spironolactone and Metoprolol. - Adjust meds as needed. Plan Patient presented with acute exacerbation of asthma vs COPD exacerbation. Reports Explosive Ordnance Disposal Technician informed her she likely has adult-onset asthma while her PCP was suspecting COPD with her previous Hx of smoking. Patient currently on 2L/NC to maintain sats > 90%. Patient continued on IV steroids and scheduled bronchodilators. Started on Singulair and Claritin. We'll continue to wean O2 as tolearted to maintain sats > 90 %. Consider converting prednisone to PO in AM and wean as symptoms improve. No evidence of PE or pneumonia on CXR or CTA of the chest. Diet: Heart healthy GI Prophylaxis: Omeprazole. DVT Prophylaxis: Lovenox. Lines: Peripheral Code Status: Full code Time Spent With Patient Time with patient: Greater than 35 minutes Subjective Date/time seen: 12/08/23 09:04 Interval history: Patient presented to the ER with worsening chest tightness and SOB. CXR done showed cardiomegaly, with CTA chest negative for PE, only showing atelectasis changes in the lung bases and lingula. Pt ABG's showed PH 7.3, PO2 71.1, PCO2 68. She was initially placed on BIPAP which was able to be weaned of and pt currently on 2L/NC with sats > 90 %. Patient reports she sees a alarm service technician in [place], and was informed she probably has adult-onset asthma, with her PCP suspecting COPD. Patient reports much improvement in symptoms currently and states breathing is much better and chest tightness is resolved 12/07-pt is seen and examined at the bedside. O2 turned down to 1 l- will monitor overnight to see if able to wean off o2 all together as pt prefers not to go home on oxygen. She reports feeling better- no sob with ambulation, no sob- improved. Review of Systems Review of Systems: All systems reviewed & are unremarkable except as noted in HPI and below Cardiovascular: Cardiovascular: Denies chest pain Respiratory: Respiratory: Denies chest congestion Exam Const: General: no acute distress Other: female, nontoxic appearance. Appears comfortable. HENMT: Face/Nose/Sinus: Normal nares present Mouth: Yes dry mucous membranes Other: BiPAP in place. Eyes: General: appearance normal, both eyes and all related structures Sclera: sclerae normal Pupils: Equal, round and reactive pupils prese
[2023-12-08] MEDS: LORATADINE/PSEUDOEPHEDRINE (*CRX) 10/240 MG TABLET ER 24 HR 1 TAB PO (09:45)
[2023-12-08] MEDS: amLODIPine BESYLATE 5 MG TABLET PO (09:46)
[2023-12-08] MEDS: PANTOPRAZOLE 40 MG TABLET PO (09:46)
[2023-12-08] MEDS: SPIRONOLACTONE 25 MG TABLET PO (09:46)
[2023-12-08] MEDS: FUROSEMIDE 40 MG TABLET PO (09:46)
[2023-12-08] MEDS: lisinopriL 20 MG TABLET PO (09:46)
[2023-12-08 10:59] LABS: Hematocrit 46.8 % (37.0-47.0); Hemoglobin 14.7 g/dL (12.0-15.0); Mean Corpuscular HGB Conc 31.4 g/dl (32-36); Mean Corpuscular Hemoglobin 31.9 pg (26-34); Mean Corpuscular Volume 101.5 fl (80-100); Mean Platelet Volume 10.1 fl (7.4-10.4); Platelet Count Result 227 k/mm3 (150-375); Red Blood Count 4.61 M/mm3 (4.2-5.4); Red Cell Distribution Width 15.1 % (11.5-14.5); White Blood Count 9.5 K/mm3 (4.5-10.0)
[2023-12-08 12:24] LABS: Alanine Aminotransferase 17 U/L (6-35); Albumin Level 4.1 g/dL (3.5-5.1); Alkaline Phosphatase 72 U/L (38-126); Anion Gap 8 mmol/L (4-12); Aspartate Amino Transferase 30 U/L (14-36); Bilirubin,Total 0.7 mg/dL (0.2-1.3); Blood Urea Nitrogen 36 mg/dL (7-17); Calcium 9.2 mg/dL (8.4-10.2); Carbon Dioxide 38 mmol/L (22-30); Chloride 88 mmol/L (98-107); Estimated CRCL calculation 60 ml/min; Estimated Glomerular Filt Rate > 60; Glucose 136 mg/dL (65-110); Potassium 4.8 mmol/L (3.4-5.0); Sodium 134 mmol/L (137-145)
[2023-12-08] MEDS: GABAPENTIN 100 MG CAPSULE 200 MG PO (20:00)
[2023-12-08] MEDS: METOPROLOL SUCCINATE EXT REL 50 MG TABCR PO (20:01)
[2023-12-08] MEDS: MONTELUKAST SODIUM 10 MG TABLET PO (20:02)
[2023-12-09] VITALS (17 sets, daily range): BP systolic 115–148; BP diastolic 54–87; PULSE 59–90; RESP 12–20; TEMP 36.4–36.5; O2SAT 91–100
[2023-12-09] MEDS: IPRATROPIUM 0.5 MG/ALBUTEROL SULFATE 2.5 MG AMPUL.NEB 3 ML INHALATION ×4 (03:00→21:09)
[2023-12-09] MEDS: methylPREDNISolone SOD SUCC 125 MG VIAL 60 MG IV PUSH (05:12)
[2023-12-09] MEDS: UMECLIDINIUM/VILANTEROL 62.5-25 MCG ELLIPTA 1 PUFF INHALATION (07:37)
[2023-12-09] MEDS: traMADol HCL (*CRX) 50 MG TABLET PO ×3 (08:16→20:52)
[2023-12-09] MEDS: lisinopriL 20 MG TABLET PO (08:17)
[2023-12-09] MEDS: amLODIPine BESYLATE 5 MG TABLET PO (08:17)
[2023-12-09] MEDS: SPIRONOLACTONE 25 MG TABLET PO (08:17)
[2023-12-09] MEDS: LORATADINE/PSEUDOEPHEDRINE (*CRX) 10/240 MG TABLET ER 24 HR 1 TAB PO (08:17)
[2023-12-09] MEDS: PANTOPRAZOLE 40 MG TABLET PO (08:17)
[2023-12-09] MEDS: FUROSEMIDE 40 MG TABLET PO (08:17)
--- NOTE | 2023-12-09 15:27 | HOMEO2EVAL ---
Evaluation was performed at [facility] Home Oxygen Evaluation RC: Home Oxygen (O2) Evaluation Start: 12/09/23 11:46 Freq: ONCE Status: Active Protocol: RPE Activity Type Activity Date Activity User E-sign Co-sign Detail Recorded Client Recorded Date Recorded By Document 12/09/23 14:45 LOUIE [email or web address] 12/09/23 15:27 LOUIE Document 12/09/23 14:50 LOUIE [email or web address] 12/09/23 15:27 LOUIE Document 12/09/23 15:00 LOUIE [email or web address] 12/09/23 15:27 LOUIE 12/09/23 12/09/23 12/09/23 14:45 14:50 15:00 Home O2 Evaluation [Oxygen] -Test Phase Resting Exercise Resting -Oxygen Delivery Room Air Room Air Room Air [Pulse Oximetry] -Pulse Oximetry (90-100 %) 96 91 94 [Pulse Rate] -Pulse Rate (60-100 beats/min) 60 90 77 [Comments] -Home Oxygen Evaluation Comments NO HOME O2 NEEDED AT THIS TIME. [Charges] -Evaluation Charges O2 Evaluation by Pulmonary
--- NOTE | 2023-12-09 15:27 | PCRCNOTE ---
HOME O2 EVAL COMPLETE. NO HOME O2 NEEDED AT THIS TIME. RN NOTIFIED.
--- NOTE | 2023-12-09 15:44 | PM.IMPN ---
Progress Note: A&P Assessment and Plan (1) Acute hypoxemic respiratory failure: Code(s): J96.01 - Acute respiratory failure with hypoxia Status: Acute Assessment and Plan: - Likely related to asthma vs COPD exacerbation. - CXR with no infiltrates. - CTA chest negative for PE. - Acute respiratory virus PCR negative. - Improving with IV steroids and scheduled bronchodilators. - Started on Singulair and claritin. - Currently on 2L/NC with sats > 90 %. - Continue to wean O2 as dawit to maintain sats > 90 %. 12/07- may need home o2 eval prior to discharge - try to wean off o2 - anticipate discharge home tomorrow 12/09/23: Home oxygen eval ordered. Solumedrol IV discontinued. Start oral Prednisone on 12/09. Pt will need to follow up with her Vocational Rehab Consultant upon discharge. She indicates she has one in [place]. (2) Asthma: Qualifiers: Asthma severity: unspecified severity Asthma persistence: intermittent Asthma complication type: with acute exacerbation Qualified Code(s): J45.21 - Mild intermittent asthma with (acute) exacerbation Code(s): J45.909 - Unspecified asthma, uncomplicated Status: Acute Assessment and Plan: - current exacerbation. - CXR and CTA chest negative for pneumonia/PE. - Symptoms improving with steroids and scheduled bronchodilators. - Continue IV steroids for now and consider PO in AM. - Started on Singulair and claritin as we continue Anoro Ellipta. - Continue f/u with building serviceman outpatient. 12/09/23: See plan for #1 (3) Hypertension: Qualifiers: Hypertension type: primary hypertension Qualified Code(s): I10 - Essential (primary) hypertension Code(s): I10 - Essential (primary) hypertension Status: Chronic Assessment and Plan: - Fairly controlled. - Continue Amlodipine, Lisinopril, Spironolactone and Metoprolol. - Adjust meds as needed. 12/09/23: Continue home meds Monitor VS and trend labs. Time Spent With Patient Time with patient: 25 - 35 minutes Subjective Date/time seen: 12/09/23 15:44 Interval history: This very pleasant 68 year old female pt was examined at the bedside today in interval assessment after being admitted for an asthma exacerbation. She has been using between Room air and 0.5L of supplemental oxygen as she becomes air hungry with any exertion. A formal home oxygen eval is ordered for today. In addition, the pts steroids are being changed from IV to oral with the first dose being in the AM. Pt has overall improved and I suspect she will be ready for discharge tomorrow. Review of Systems Review of Systems: All systems reviewed & are unremarkable except as noted in HPI and below Exam Narrative: Constitutional: Pleasant female pt sitting up in bed at this time in no acute distress. HEENT: Head is atraumatic and normocephalic. MMM Eyes: PERRLA Neck: No LN and FROM with supple movements Respiratory: CTAB in all carvajal. Cardio: RRR, S1 and S2 present, no M,R,G,H GI: S, NT, BS+x4, no rebound, guarding Skin: Clear, intact without erythema, edema or bruising. Neuro: No focal deficits and alert and oriented x3-4. Extremities: FROM of all extremities without deficits. Psych: Pleasant and normal affect. Objective Data Vital Signs Vital Signs: Vital Signs - 24 hr 12/08/23 20:01 12/08/23 20:00 12/08/23 21:02 Temperature Pulse Rate 63 74 Respiratory Rate 18 Blood Pressure Pulse Oximetry 93 Oxygen Delivery Nasal Cannula Oxygen Flow Rate 0.5 Fraction of Inspired Oxygen 12/08/23 21:06 12/08/23 21:09 12/08/23 21:12 Temperature 97.4 F L Pulse Rate 74 56 L 71 Respiratory Rate 18 18 Blood Pressure 103/55 L Pulse Oximetry 94 95 Oxygen Delivery Nasal Cannula Oxygen Flow Rate 0.5 Fraction of Inspired Oxygen 12/08/23 22:02 12/09/23 05:10 12/09/23 03:00 Temperature 97.6 F Pulse Rate 56 L 62 69 Respiratory Rate 15 18 17 Blood Pressure 148
[2023-12-09] MEDS: GABAPENTIN 100 MG CAPSULE 200 MG PO (20:51)
[2023-12-09] MEDS: METOPROLOL SUCCINATE EXT REL 50 MG TABCR PO (20:52)
[2023-12-09] MEDS: MONTELUKAST SODIUM 10 MG TABLET PO (20:52)
[2023-12-10] VITALS (7 sets, daily range): BP systolic 136; BP diastolic 65; PULSE 52–61; RESP 12–16; TEMP 36.3; O2SAT 93–100
[2023-12-10] MEDS: traMADol HCL (*CRX) 50 MG TABLET PO ×2 (01:15→08:54)
[2023-12-10] MEDS: IPRATROPIUM 0.5 MG/ALBUTEROL SULFATE 2.5 MG AMPUL.NEB 3 ML INHALATION ×2 (01:54→07:21)
[2023-12-10 07:11] LABS: Basophils Percent Auto 0.1 % (0.2-1.2); Hematocrit 51.5 % (37.0-47.0); Hemoglobin 15.8 g/dL (12.0-15.0); Immature Granulocyte Absolute 0.03 K/mm3 (0.00-0.031); Immature Granulocyte Percent A 0.4 % (0-0.5); Immature Platelet Fraction Pct 5.6 % (0.9-11.2); Lymphocytes Absolute Auto 0.56 K/mm3 (0.9-3.2); Lymphocytes Percent Auto 6.5 % (18.3-44.2); Mean Corpuscular HGB Conc 30.7 g/dl (32-36); Mean Corpuscular Volume 101.2 fl (80-100); Mean Platelet Volume 10.8 fl (7.4-10.4); Monocytes Absolute Auto 0.9 K/mm3 (0.1-0.6); Monocytes Percent Auto 10.2 % (2.6-8.5); Neutrophils Absolute Auto 7.1 K/mm3 (1.3-6.7); Neutrophils Percent Auto 82.8 % (45.5-73.1); Platelet Count Result 222 k/mm3 (150-375); Red Blood Count 5.09 M/mm3 (4.2-5.4); Red Cell Distribution Width 14.7 % (11.5-14.5); White Blood Count 8.6 K/mm3 (4.5-10.0)
[2023-12-10 07:21] LABS: Alanine Aminotransferase 28 U/L (6-35); Albumin Level 4.2 g/dL (3.5-5.1); Alkaline Phosphatase 70 U/L (38-126); Aspartate Amino Transferase 32 U/L (14-36); Bilirubin,Total 0.9 mg/dL (0.2-1.3); Blood Urea Nitrogen 39 mg/dL (7-17); Carbon Dioxide > 40 mmol/L (22-30); Chloride 89 mmol/L (98-107); Estimated CRCL calculation 55 ml/min; Estimated Glomerular Filt Rate 55; Glucose 92 mg/dL (65-110); Magnesium 2.2 mg/dL (1.6-2.3); Potassium 4.9 mmol/L (3.4-5.0); Sodium 137 mmol/L (137-145)
[2023-12-10] MEDS: UMECLIDINIUM/VILANTEROL 62.5-25 MCG ELLIPTA 1 PUFF INHALATION (07:28)
[2023-12-10] MEDS: predniSONE 40 MG, predniSONE 10 MG 50 MG PO (08:49)
[2023-12-10] MEDS: lisinopriL 20 MG TABLET PO (08:53)
[2023-12-10] MEDS: amLODIPine BESYLATE 5 MG TABLET PO (08:53)
[2023-12-10] MEDS: LORATADINE/PSEUDOEPHEDRINE (*CRX) 10/240 MG TABLET ER 24 HR 1 TAB PO (08:53)
[2023-12-10] MEDS: SPIRONOLACTONE 25 MG TABLET PO (08:54)
[2023-12-10] MEDS: FUROSEMIDE 40 MG TABLET PO (08:54)
[2023-12-10] MEDS: PANTOPRAZOLE 40 MG TABLET PO (08:54)
--- NOTE | 2023-12-10 10:03 | PM.DS ---
DS: Admitting Diagnosis Discharge Date 12/10/23 Admitting Diagnosis Asthma Exacerbation Hypertension DS: Discharge Diagnosis Discharge Diagnosis (1) Acute hypoxemic respiratory failure: Code(s): J96.01 - Acute respiratory failure with hypoxia Status: Acute Assessment and Plan: - Likely related to asthma vs COPD exacerbation. - CXR with no infiltrates. - CTA chest negative for PE. - Acute respiratory virus PCR negative. - Improving with IV steroids and scheduled bronchodilators. - Started on Singulair and claritin. - Currently on 2L/NC with sats > 90 %. - Continue to wean O2 as dawit to maintain sats > 90 %. 12/07- may need home o2 eval prior to discharge - try to wean off o2 - anticipate discharge home tomorrow 12/09/23: Home oxygen eval ordered. Solumedrol IV discontinued. Start oral Prednisone on 12/09. Pt will need to follow up with her Resource Program Teacher upon discharge. She indicates she has one in [place]. 12/10/23: Date of discharge - Pt passed home oxygen evaluation and does not need home oxygen at this time. She has been weaned off of oxygen completely to room air and is without any respiratory distress. Her steroids were switched to oral yesterday and she has been tolerating well. She has a Resource Program Teacher that she follows with and will follow up with them after discharge. (2) Asthma: Qualifiers: Asthma severity: unspecified severity Asthma persistence: intermittent Asthma complication type: with acute exacerbation Qualified Code(s): J45.21 - Mild intermittent asthma with (acute) exacerbation Code(s): J45.909 - Unspecified asthma, uncomplicated Status: Acute Assessment and Plan: - current exacerbation. - CXR and CTA chest negative for pneumonia/PE. - Symptoms improving with steroids and scheduled bronchodilators. - Continue IV steroids for now and consider PO in AM. - Started on Singulair and claritin as we continue Anoro Ellipta. - Continue f/u with tool and die machinist outpatient. 12/09/23: See plan for #1 12/10/23: Date of discharge - See plan for #1 (3) Hypertension: Qualifiers: Hypertension type: primary hypertension Qualified Code(s): I10 - Essential (primary) hypertension Code(s): I10 - Essential (primary) hypertension Status: Chronic Assessment and Plan: - Fairly controlled. - Continue Amlodipine, Lisinopril, Spironolactone and Metoprolol. - Adjust meds as needed. 12/09/23: Continue home meds Monitor VS and trend labs. 12/10/23: Date of discharge - Stable BP. Continue all home meds. DS: Summary Hospital Course Reason for hospitalization: Asthma exacerbation Hospital Course: This very pleasant 68 year old female pt w/PMH of Asthma and HTN presented to the ER on 12/06/23 and was subsequently admitted to the hospital for monitoring of her acute on chronic asthma exacerbation. She has had a favorable hospital course and has been successfully weaned to room air and is breathing without difficulty. She continues to wear BiPap at night. She is tolerating oral steroids now and she is stable for discharge to home to follow up with her Resource Program Teacher as an outpatient. All questions solicited by the pt were answered to her satisfaction prior to discharge. Status at Discharge Functional status at discharge: independent ambulation Overall status at discharge: patient is back to baseline Time Spent with Patient Time attestation: Total time spent providing and/or coordinating discharge services: Time spent: Greater than 30 minutes Specific discharge activities: Discharge medications, follow up and return to ER symptoms. Exam Narrative: Constitutional: Pleasant female pt sitting up in bed at this time in no acute distress. HEENT: Head is atraumatic and normocephalic. MMM Eyes: PERRLA Neck: No LN and FROM with supple movements Respiratory: CTAB in all carvajal. Cardio: RRR, S1 and S2 present, no M,R,G,H GI: S, NT, BS+x4, no reboun
== END 2023-12-10 10:50 | disposition home or self-care (01) | DRG 202 ==
LOC: ANHED 18:31 → ANH3MEDSUR 19:11
PROVIDERS: Nurse Practitioner; Admitting Provider Internal Medicine; Emergency Provider Emergency Medicine; Visit Provider Nurse Practitioner Adult Health
DX: J45.21 Mild intermittent asthma with (acute) exacerbation (principal); J96.01 Acute respiratory failure with hypoxia; K21.9 Gastro-esophageal reflux disease without esophagitis; E78.5 Hyperlipidemia, unspecified; I11.9 Hypertensive heart disease without heart failure; Z85.828 Personal history of other malignant neoplasm of skin; Z90.49 Acquired absence of other specified parts of digestive tract; Z87.891 Personal history of nicotine dependence; Z20.822 Contact with and (suspected) exposure to COVID-19
CPT/HCPCS: 36415; 36600; 71045; 71275; 80053; 82805; 83735; 83880; 84484; 85025; 85027; 85055; 85380; 85610; 85730; 87637; 93005; 94002; 94003; 94618; 94640; 96374; 96376; 99285; A9270; G0378; J2919; J7120; J7512; Q9967